=== PATIENT | female | born 1985 | race Caucasian/White ===

== ENCOUNTER 2019-02-17 17:30 | Emergency (ER) | payer BC ==
--- NOTE | 2019-02-17 19:21 | ULT ---
EXAM: Right lower extremity venous duplex: Deep veins evaluated with color Doppler, spectral analysis, and compression. INDICATIONS: Right lower extremity pain and edema. FINDINGS: Deep veins interrogated include common femoral vein, femoral vein, popliteal vein, and post erior tibial vein. These veins show normal compression and blood flow. No evidence of DVT. IMPRESSION: Negative Right venous duplex exam.
== END 2019-02-17 19:36 | disposition home or self-care (01) ==
LOC: ERS 17:30
DX: M79.661 Pain in right lower leg (principal)
CPT/HCPCS: 36415; 80053; 85025; 85379